=== PATIENT | female | born 1970 | race Caucasian/White ===

== ENCOUNTER 2019-11-15 13:20 | Emergency (ER) | payer OTHER, SELFPAY ==
[2019-11-15] VITALS (9 sets, daily range): BP systolic 127–138; BP diastolic 74–96; PULSE 65–82; RESP 16–21; TEMP 36.4; O2SAT 18–100
--- NOTE | ~2019-11-15 | CT_ITS ---
EXAMINATION: CT knee RT wo con DATE: 11/15/2019 15:27 INDICATION: Right knee pain. Abnormal knee radiographs. TECHNIQUE: Computed tomography (CT) of the right knee was performed without intravenous contrast. Aut omated exposure control and iterative reconstruction technique were employed. The dose-length product was 334.47 mGy-cm. COMPARISON: Right knee radiographs 11/15/2019 FINDINGS: A lucent line in the lateral aspect of the patella may be an old healed fracture or a bipar tite patella. There is an acute fracture involving the medial and lateral tibial condyles. There is n o significant displacement at the articular surface of the medial tibial condyle. The lateral tibial condyle demonstrates mild incongruence anteriorly without significant depression of the articular stephanie face. There is involvement of the attachment site of the anterior cruciate ligament. There is mild tr icompartmental osteoarthritis. There is a large lipohemarthrosis. IMPRESSION: 1. Bicondylar tibial plateau fracture (Schatzker type V). 2. Mild tricompartmental osteoarthritis. 3. Large lipohemarthrosis. Reviewed, dictated and finalized at location A.
--- NOTE | ~2019-11-15 | XR_ITS ---
XR knee RT min 4V 11/15/2019 13:59 Indication: Right knee pain after fall Procedure: 4 views right knee Comparison: No prior studies for comparison. Findings: There is a probable impaction fracture of the proximal tibial metaphysis. There is a large lipohemarthrosis. Osteopenia. No other fracture is identified. Impression: 1: Probable nondisplaced impaction fracture proximal tibial metaphysis. Consider correlation with CT. 2: Large lipohemarthrosis. Reviewed, dictated and finalized at location A. Impression: 1: Probable nondisplaced impaction fracture proximal tibial metaphysis. Conside r correlation with CT. 2: Large lipohemarthrosis.
--- NOTE | 2019-11-15 13:26 | ECG_ITS ---
Measurements Intervals [place] Rate: 61 P: 18 GA: 158 QRS: 56 QRSD: 114 T: 56 QT: 392 QTc: 396 Interpretive Statements SINUS RHYTHM INTRAVENTRICULAR CONDUCTION DELAY ANTEROSEPTAL INFARCT, AGE INDETERMINATE BORDERLINE ST-T WAVE ABNORMALITY- DIFFUSE LEADS BASELINE ARTIFACT- I, V4-V6 ABNORMAL ECG Electronically Signed On 11-15-2019 14:38:54 CDT by Bassam Carrera D.O.
--- NOTE | 2019-11-15 13:30 | ED.FALL ---
HPI - Fall General Chief Complaint: Fall Stated Complaint: R KNEE INJURY S/P FALL OFF LADDER Time Seen by Provider: 11/15/19 13:28 Source: patient and RN notes reviewed Mode of arrival: EMS Limitations: no limitations History of Present Illness HPI Narrative: A 49 y/o female presents to the ED via EMS from home after falling off of a roughly 3 ft stepladder just RN CARDIOLOGY. She states that she has a hx of frequent falls d/t a hx of 3 strokes. She reports that she landed on her rt side and is now having rt knee pain and mild rt shoulder pain. She notes that she hasn't been able to walk d/t her rt knee pain. She denies any HI, LOC, CP, SOB, dizziness, lightheadedness, BEST, neck pain, or back pain. MD complaint: fall Onset (ago): minute(s) Fall from: from height (distance) (3 ft) Fall witnessed: no Place fall occurred: home Loss of consciousness: none Symptoms prior to fall: none Context: history of frequent falls Location of injury - extremities: Left: knee Associated symptoms (after fall): denies Related Data Home Medications Medication Instructions Recorded Confirmed amlodipine 5 mg PO DAILY 11/15/19 aspirin 325 mg PO DAILY 11/15/19 carvedilol 25 mg PO BID 11/15/19 furosemide 20 mg PO DAILY 11/15/19 garlic 2,000 mg PO DAILY 11/15/19 hydroxyzine HCl 50 mg PO BID 11/15/19 losartan 100 mg PO DAILY 11/15/19 [id number]-Yb-gnhc-minerals [One tablet PO 11/15/19 Daily Calcium/Iron] au-fj-eqtg-FA-Ca carb-vit K 1 tablet PO DAILY 11/15/19 [Women's Multivitamin] omeprazole 20 mg PO DAILY 11/15/19 phenytoin sodium extended 300 mg PO DAILY 11/15/19 pravastatin 20 mg PO DAILY 11/15/19 vitamin A 8,000 unit PO DAILY 11/15/19 Allergies Allergy/AdvReac Type Severity Reaction Status Date / Time No Known Allergies Allergy Verified 11/15/19 13:22 Review of Systems Review of Systems: All systems reviewed & are unremarkable except as noted in HPI and below Cardiovascular: Cardiovascular: Denies chest pain and Denies lightheadedness Respiratory: Respiratory: Denies dyspnea Musculoskeletal: Musculoskeletal: Denies back pain, Denies neck pain and Reports other (rt knee and mild rt shoulder pain after a fall) Neurologic: Denies dizziness, Denies headache(s) and Denies other (HI or LOC) PMFSH Past Medical History Medical History CVA (cerebral vascular accident) x3. H/O: HTN (hypertension) Hx of seizure disorder Medical history unknown Surgical History Surgical History S/P CABG x 4 Surgical history unknown Social History Social History (Updated 11/15/19 @ 13:59 by Kevin Dowell) Smoking status: Never smoker Gender identity (if verbalized by the patient): Female Comments hx of 3 strokes, DM, CABG x4, seizures, HTN, PCP: Dr. Harris in [place] Exam Const: General: cooperative, no acute distress and alert Nutritional Appearance: well nourished Orientation/consciousness: patient oriented x3 Limitations: no limitations HENMT: Mouth: Yes lip normal and Yes moist mucous membranes Resp: Effort & Inspection: normal respiratory effort Auscultation: clear to auscultation bilaterally Cardio: Rate: regular rate Rhythm: regular rhythm GI: GI Palp: Yes Soft to palpation and No Tenderness to palpation present (GI) Auscultation: normal bowel sounds Skin: General skin exam: normal color Neuro: General: patient oriented x3 Cognition (Neuro): normal cognition Speech: normal speech Extrem: General: full ROM and no clubbing, cyanosis or edema Right upper extremity: shoulder/upper arm (Painless ROM) tenderness (mild) Left upper extremity: normal to inspection Right lower extremity: hip/thigh Details: no tenderness and knee Details: tenderness (and diffusely throughout the knee) Location: of the lateral joint line and of the proximal tibia and abrasion prepatellar Left lower extremity: normal to inspection Psych: Mental
--- NOTE | 2019-11-15 13:39 | PC.NURSE ---
Cesario at bedside for pt assessment.
--- NOTE | 2019-11-15 14:28 | PC.NURSE ---
pt assisted x2 to bedside commode, pt refusing to use bedpan.
--- NOTE | 2019-11-15 14:58 | PC.NURSE ---
PT REQUESTING PAIN MEDICATION, ERP GELDMACHER AWARE, STATES SHE WILL PLACE ORDER.
[2019-11-15] MEDS: KETOROLAC 30 MG/ML VIAL (*BKC) IV PUSH (15:00)
--- NOTE | 2019-11-15 15:46 | PC.NURSE ---
SPOKE WITH PT, STATES THAT THE TORDAL HAS NOT HELPED HER PAIN. SPOKE WITH NAILA CAPUTO, STATES THAT SHE WILL PLACE ANOTHER ORDER FOR PAIN MEDICATION.
== END 2019-11-15 17:15 | disposition home or self-care (01) ==
PROVIDERS: Emergency Provider Emergency Medicine
DX: S82.141A Displaced bicondylar fracture of right tibia, initial encounter for closed fracture (principal); Z86.73 Personal history of transient ischemic attack (TIA), and cerebral infarction without residual deficits; I10 Essential (primary) hypertension; G40.909 Epilepsy, unspecified, not intractable, without status epilepticus; Z95.1 Presence of aortocoronary bypass graft; I25.10 Atherosclerotic heart disease of native coronary artery without angina pectoris; I45.9 Conduction disorder, unspecified; R94.31 Abnormal electrocardiogram [ECG] [EKG]; M17.11 Unilateral primary osteoarthritis, right knee; Z91.81 History of falling; W11.XXXA Fall on and from ladder, initial encounter
CPT/HCPCS: 73564; 73700; 81025; 93005; 96374; 96375; 99284; A9270; J1885; J3010

== ENCOUNTER 2022-09-21 23:05 | Emergency (ER) | payer OTHER, SELFPAY ==
--- NOTE | ~2022-09-21 | XR_ITS ---
XR knee LT min 4V 09/22/2022 00:05 Indication: Left knee pain Procedure: 4 views left knee Comparison: No prior studies for comparison. Findings: There is a large joint effusion. There is mild polyarticular osteoarthritis. Osteopenia. No acute fracture is identified. Impression: 1: No acute fracture identified. Large joint effusion. If there is concern for nondisplaced fracture, recommend correlation with CT or MRI. Reviewed, dictated and finalized at location A. [employer]AL STOREKEEPER Impression: 1: No acute fracture identified. Large joint effusion. If there is concern for nondisplaced fracture, recommend correlation with CT or MRI.
[2022-09-21 23:11] VITALS: BP 165/82; PULSE 64; RESP 14; TEMP 36.2; O2SAT 100
--- NOTE | 2022-09-22 00:37 | ED.LOWEXIN ---
HPI - Extremity Injury (Lower) General Chief Complaint: Extremity Injury, Lower <Aimee Gomez PA-C - Last Filed: 09/22/22 02:58> Stated Complaint: left leg injury[place] <Aimee Gomez PA-C - Last Filed: 09/22/22 02:58> Time Seen by Provider: 09/21/22 23:38 <JEANNA Hudson Last Filed: 09/22/22 02:58> Source: patient <JEANNA Hudson Last Filed: 09/22/22 02:58> Mode of arrival: wheelchair <JEANNA Hudson Last Filed: 09/22/22 02:58> Limitations: no limitations <JEANNA Hudson Last Filed: 09/22/22 02:58> History of Present Illness HPI Narrative: This is a 52 year old female that presents to the ER for an injury to the left knee sustained earlier today. Reports she was stepping down off of the bus and fell onto her left knee. Reports pain in the knee which is making it difficult for her to bear weight on the leg. Reports decreased range of motion of the knee due to pain. Denies hitting her head or loss of consciousness. No other injuries. Denies numbness. <Aimee Gomez PA-C - Last Filed: 09/22/22 02:58> Related Data Home Medications: Home Medications Medication Instructions Recorded Confirmed amlodipine 5 mg tablet 5 mg PO DAILY 11/15/19 aspirin 325 mg tablet 325 mg PO DAILY 11/15/19 carvedilol 25 mg tablet 25 mg PO BID 11/15/19 furosemide 20 mg tablet 20 mg PO DAILY 11/15/19 garlic 2,000 mg PO DAILY 11/15/19 hydroxyzine HCl 50 mg tablet 50 mg PO BID 11/15/19 losartan 100 mg tablet 100 mg PO DAILY 11/15/19 hquopwjh-ccn-jnfy-FA-Ca carb-vit K 1 tablet PO DAILY 11/15/19 18 mg iron-400 mcg-500 mg tablet (Women's Multivitamin) nhsphsgttyrw-Ok-xifk-minerals (One tablet PO 11/15/19 Daily Calcium/Iron tablet) omeprazole 20 mg capsule,delayed 20 mg PO DAILY 11/15/19 release phenytoin sodium extended 300 mg 300 mg PO DAILY 11/15/19 capsule pravastatin 20 mg tablet 20 mg PO DAILY 11/15/19 vitamin A 2,400 mcg capsule 8,000 unit PO DAILY 11/15/19 <Aimee Gomez PA-C - Last Filed: 09/22/22 02:58> Allergies/Adverse Reactions: Allergies Allergy/AdvReac Type Severity Reaction Status Date / Time No Known Allergies Allergy Verified 11/30/19 09:04 <Aimee Gomez PA-C - Last Filed: 09/22/22 02:58> Review of Systems Review of Systems: CONSTITUTIONAL: Denies fever MUSCULOSKELETAL: Reports joint pain, and myalgia. NEUROLOGIC: Denies numbness <Aimee Gomez PA-C - Last Filed: 09/22/22 02:58> All systems reviewed & are unremarkable except as noted in HPI and below <Aimee Gomez PA-C - Last Filed: 09/22/22 02:58> [facility] Past Medical History Medical History: [facility] CVA (cerebral vascular accident) x3. Diabetes with neurologic complications Fall from ladder H/O: HTN (hypertension) Hx of seizure disorder Medical history unknown Tibial plateau fracture, right <JEANNA Hudson Last Filed: 09/22/22 02:58> Surgical History Surgical History: Surgical History S/P CABG x 4 Surgical history unknown <JEANNA Hudson Last Filed: 09/22/22 02:58> Family History Family History: Family History Other Diabetes mellitus Hypertension <JEANNA Hudson Last Filed: 09/22/22 02:58> Social History Social History: Social History Smoking status: Never smoker Alcohol intake: never Substance use: unknown Gender identity (if verbalized by the patient): Female <Aimee Gomez PA-C - Last Filed: 09/22/22 02:58> Exam Narrative: GENERAL: Well-appearing, well-nourished, and in no acute distress. HEAD: Normocephalic, atraumatic. EYES: EOMI. CHEST: No respiratory distress HEART: Regular rate EXTREMITIES
[2022-09-22] MEDS: HYDROcodone/acetaminophen (*CRX) 5-325 MG TABLET 1 TAB PO (00:48)
== END 2022-09-22 03:56 | disposition home or self-care (01) ==
PROVIDERS: Emergency Provider Emergency Medicine; PCP Family Medicine
DX: S83.92XA Sprain of unspecified site of left knee, initial encounter (principal); I10 Essential (primary) hypertension; G40.909 Epilepsy, unspecified, not intractable, without status epilepticus; E11.49 Type 2 diabetes mellitus with other diabetic neurological complication; Z86.73 Personal history of transient ischemic attack (TIA), and cerebral infarction without residual deficits; Z79.82 Long term (current) use of aspirin; Z95.1 Presence of aortocoronary bypass graft; W17.89XA Other fall from one level to another, initial encounter
CPT/HCPCS: 73564; 99283; A9270